=== PATIENT | male | born 1950 | race Caucasian/White ===

== ENCOUNTER → 2018-01-06 | Outpatient (CLI) | payer OTHER ==
[~2018-01-06] MED LIST: ASPIRIN EC81 M1 PO; ERYC250 MG PO; MULTIVITAMINS PO; PROTONIX40 M2 PO; VESICARE 5 MG TA5 MG PO; [UNRECOGNIZED DRUG - OTHER]
== END ==
LOC: CAT 09:10
DX: R41.82 Altered mental status, unspecified (principal); R55 Syncope and collapse; Z86.73 Personal history of transient ischemic attack (TIA), and cerebral infarction without residual deficits

== ENCOUNTER → 2018-11-02 | Outpatient (CLI) | payer OTHER | LOC: ULTRA 08:49 | DX: M79.672 Pain in left foot (principal); M79.671 Pain in right foot; Z88.8 Allergy status to other drugs, medicaments and biological substances; Z88.2 Allergy status to sulfonamides ==

== ENCOUNTER 2020-01-11 08:21 | Emergency (ER) | payer OTHER ==
[~2020-01-11] VITALS: Ht 172.7 cm; Wt 68.0 kg
[2020-01-11] MEDS ORDERED: OMEPRAZOLE40 MG PO (08:38)
[2020-01-11] MEDS ORDERED: VITAMIN D21250 MC1 PO (08:39)
[2020-01-11 09:00] LABS: ABSOLUTE NEUTROPHILS 5.5 thou/uL (1.4-8.2); BASOPHILS 0.4 % (0.0-2.0); EOSINOPHILS 1.5 % (0.0-3.0); HEMATOCRIT 42.8 % (42.0-52.0); LYMPHOCYTES 7.9 % (24.0-44.0); MCH 31.5 pg (26.0-34.0); MCHC 35.1 g/dL (28.0-37.0); MCV 89.9 fL (80.0-100.0); MONOCYTES 5.5 % (1.0-8.0); PLATELET COUNT 146 thou/uL (150-400); POLYS 84.7 % (36.0-66.0); RBC 4.77 mil/uL (4.50-6.00); RDW 13.1 % (10.5-14.5); WBC 6.4 thou/uL (4.0-11.0)
--- NOTE | 2020-01-11 09:13 | EKG ---
[facility] [place] [address] ELECTROCARDIOGRAM REPORT Name: CAREN GODINEZ Room #: REG [facility].#: [id number] Admission: 01/11/20 Attend Phys: Discharge: Date of : 46 Report #: [id number] THIS REPORT FOR: cc: Paula Walters MD, Nora P. MD Lundgren,Bharat Toribio MD [facility] ~ THIS REPORT FOR: //name// [facility] ED Test Date: 2020-01-11 Test Time: 08:24:43 Pat Name: CAREN GODINEZ Department: Room: Gender: Director Of Rooms: [facility] : 1950 Requested By: Srinivas Lazaro Order Number: [id number] MD: Bharat Cullen Measurements Intervals [place] Rate: 75 P: 80 RI: 174 QRS: 14 QRSD: 104 T: 57 QT: 396 QTc: 443 Interpretive Statements Sinus rhythm RSR' in V1 or V2, right VCD Compared to ECG 01/09/2011 07:24:10 No significant change was found Electronically Signed On 01-11-2020 9:13:26 CDT by Bharat Cullen [email or web address] <ELECTRONICALLY SIGNED> By: Bharat Cullen MD, [facility] 01/11/20 0913 3 3 Bharat Cullen MD, [facility] /EPI
[2020-01-11 09:14] LABS: ANION GAP 8 mmol/L (7-16); BUN 12 mg/dL (7-18); CHLORIDE 104 mmol/L (98-107); CO2 24 mmol/L (21-32); CREATININE 0.9 mg/dL (0.7-1.3); GLUCOSE 118 mg/dL (74-106); POTASSIUM 4.1 mmol/L (3.5-5.1); SODIUM 136 mmol/L (136-145)
[2020-01-11 09:24] LABS: TROPONIN-I <0.06 ng/mL (<0.06)
[2020-01-11 10:47] VITALS: BP 136/74
== END 2020-01-11 10:48 | disposition home or self-care (01) ==
LOC: ER 08:21
PROVIDERS: Emergency Medicine
DX: R07.89 Other chest pain (principal); R05 Cough; R35.0 Frequency of micturition; R11.10 Vomiting, unspecified; K21.9 Gastro-esophageal reflux disease without esophagitis; Z86.73 Personal history of transient ischemic attack (TIA), and cerebral infarction without residual deficits; Z98.890 Other specified postprocedural states; Z79.899 Other long term (current) drug therapy; Z79.82 Long term (current) use of aspirin; Z88.0 Allergy status to penicillin; Z88.2 Allergy status to sulfonamides

== ENCOUNTER → 2020-01-25 | Outpatient (CLI) | payer OTHER ==
[~2020-01-25] MED LIST changes: +OMEPRAZOLE40 MG PO; +VITAMIN D21250 MC1 PO
== END ==
LOC: SJCVC 10:15
PROVIDERS: ATTEND Internal Medicine
DX: R94.31 Abnormal electrocardiogram [ECG] [EKG] (principal); G45.9 Transient cerebral ischemic attack, unspecified; E78.5 Hyperlipidemia, unspecified; Z79.899 Other long term (current) drug therapy

== ENCOUNTER → 2020-02-06 | Outpatient (CLI) | payer OTHER | LOC: SJCVCIMAG 06:39 | PROVIDERS: ATTEND Internal Medicine | DX: I49.3 Ventricular premature depolarization (principal); R00.0 Tachycardia, unspecified; E78.5 Hyperlipidemia, unspecified; Z79.899 Other long term (current) drug therapy ==

== ENCOUNTER 2020-03-10 11:56 | Emergency (ER) | payer OTHER ==
[~2020-03-10] VITALS: Ht 172.7 cm; Wt 68.0 kg
[2020-03-10] MEDS ORDERED: VITAMIN D325 MC1 PO (12:03)
[2020-03-10] MEDS ORDERED: VITAMIN D325 MC5 PO (12:03)
[2020-03-10] MEDS ORDERED: LEVO-T25 MCG PO (12:03)
[2020-03-10 13:56] VITALS: BP 132/82
== END 2020-03-10 13:57 | disposition home or self-care (01) ==
LOC: ER 11:56
DX: H53.8 Other visual disturbances (principal); G45.9 Transient cerebral ischemic attack, unspecified; K21.9 Gastro-esophageal reflux disease without esophagitis; Z79.82 Long term (current) use of aspirin; Z79.899 Other long term (current) drug therapy; Z88.2 Allergy status to sulfonamides; Z88.8 Allergy status to other drugs, medicaments and biological substances

== ENCOUNTER → 2020-04-03 | Outpatient (CLI) | payer OTHER ==
[~2020-04-03] MED LIST changes: +LEVO-T25 MCG PO; +VITAMIN D325 MC1 PO; +VITAMIN D325 MC5 PO
== END ==
LOC: ULTRA 09:16
PROVIDERS: ATTEND Family Medicine
DX: I65.23 Occlusion and stenosis of bilateral carotid arteries (principal)

== ENCOUNTER 2020-05-05 09:44 | Emergency (ER) | payer OTHER ==
[~2020-05-05] VITALS: Ht 170.2 cm; Wt 68.0 kg
[2020-05-05 10:39] LABS: URINE BLOOD 3+ (Negative); URINE CLARITY CLOUDY; URINE COLOR RED; URINE GLUCOSE-RANDOM* NEGATIVE (Negative); URINE KETONES 2+ (Negative); URINE PROTEIN (DIPSTICK) 2+ (Negative); URINE SPECIFIC GRAVITY >= 1.030 (1.005-1.035)
[2020-05-05 10:44] LABS: URINE LEUKOCYTES-REFLEX 2+ (Negative); URINE NITRITE-REFLEX POSITIVE (Negative)
[2020-05-05 10:46] LABS: ICTOTEST (BILI CONFIRMATORY) Negative (Negative); URINE BILIRUBIN NEGATIVE (Negative)
[2020-05-05] MEDS ORDERED: PHENAZOPYRIDIN200 M2 PO (11:41)
[2020-05-05] MEDS ORDERED: CIPRO500 M1 PO (11:41)
[2020-05-05 11:47] VITALS: BP 119/62
[2020-05-05 11:55] LABS: CASTS None Seen /LPF (None Seen); CRYSTALS None Seen /LPF (None Seen); SQUAMOUS 0-3 Few /LPF (0-3)
[2020-05-05 11:56] LABS: BACTERIA-REFLEX >30 Many /HPF (None Seen); URINE RBC >20 Many /HPF (0-2); URINE WBC-REFLEX >25 Many /HPF (0-5)
== END 2020-05-05 11:53 | disposition home or self-care (01) ==
LOC: ER 09:44
PROVIDERS: Emergency Medicine
DX: R30.0 Dysuria (principal); N41.9 Inflammatory disease of prostate, unspecified; K21.9 Gastro-esophageal reflux disease without esophagitis; Z79.82 Long term (current) use of aspirin; Z79.899 Other long term (current) drug therapy; Z88.0 Allergy status to penicillin; Z88.2 Allergy status to sulfonamides; Z91.09 Other allergy status, other than to drugs and biological substances

== ENCOUNTER → 2020-08-05 | Outpatient (CLI) | payer OTHER ==
[~2020-08-05] MED LIST changes: +CIPRO500 M1 PO; +PHENAZOPYRIDIN200 M2 PO
[2020-08-05 13:27] VITALS: BP 136/70
--- NOTE | 2020-08-08 11:28 | LINQ ---
[facility] [place] [address] LINQ PROCEDURE REPORT Name: CAREN GODINEZ Room #: REG [facility]#: [id number] Admission: 08/05/20 Attend Phys: Renzo Lamb Discharge: Date of : 46 Report #: [id number] THIS REPORT FOR: cc: Paula Walters MD, Nora P. MD Lammoglia, Francisco J. MD ~ APPROVED REPORT Study performed: 08/05/2020 13:38:01 Patient Status: Out-Patient Room #: Event Personnel: Renzo Lamb MD Exam: Insertion implantable loop recorder Indications: Palpitations The patient is a 69 year-old male with a history of Palpitations implant for identification of etiologic source and exclusion of atrial fibrillation. Implanted Devices: Reveal LINQ LNQ11, Serial # [id number], Use by 2021-05-25 Procedure The patient underwent informed consent. We discussed the details of the procedure including the risks, which include, but not limited to bleeding, infection, vascular damage, cardiac perforation, and pneumothorax. After informed consent was obtained patient brought to the cardiac catheterization laboratory prepped and hold. The left chest was prepped and draped in usual sterile manner for utilizing 1% lidocaine a wheal was raised with a 25-gauge needle. Utilizing a spinal needle the subcutaneous tract was infiltrated with lidocaine. An 11 blade was utilized to make a small incision and using blunt dissection a tract was developed. The device was deployed utilizing the deployment tool the without complications. Subcutaneous tissue was closed with 2 simple interrupted sutures and the skin was closed with a 3-0 Vicryl subcuticular. Dermabond Steri-Strips 4 x 4 OpSite were utilized. Patient tolerated procedure well. Findings Estimated Blood Loss: 0 Conclusion 1. Successful insertion of a Floodlight LINQ implantable loop [address] [address] LINQ PROCEDURE REPORT Name: CAREN GODINEZ PAVAN [id number] Admission: 08/05/20 Attend Phys: Renzo Thomas Discharge: Date of : 46 Report #: [id number] recorder Recommendations 1. Routine post loop recorder insertion protocol <ELECTRONICALLY SIGNED> By: Renzo Lamb MD 08/08/20 1128 1128 27 Renzo Lamb MD /INF
== END | disposition home or self-care (01) ==
LOC: CATH 09:44
PROVIDERS: ATTEND Internal Medicine
DX: R00.2 Palpitations (principal); Z98.890 Other specified postprocedural states; Z79.899 Other long term (current) drug therapy; Z88.2 Allergy status to sulfonamides; Z88.0 Allergy status to penicillin